=== PATIENT | male | born 1965 | race Caucasian/White ===

== ENCOUNTER → 2017-06-30 | Outpatient (CLI) | payer OTHER ==
--- NOTE | 2017-07-01 23:30 | RAD ---
Procedure: XR CHEST 2 VIEWS Exam Date: 06/30/2017 Ordering Provider: KENNETH Lyle Clinical Indication: COPD Comparison: 02/29/2016 Findings: Cardiomediastinal silhouette is within normal limits. Focal lung consolidation: None Pleural effusion: None Pneumothorax: None Bones and soft tissues: Nonacute Impression: 1. No acute abnormalities in the chest. Electronically signed by: Ashkan Ventura MD 07/01/2017 11:29 PM SAP DATA ARCHITECT
== END | disposition home or self-care (01) ==
LOC: YCFC.O 14:09
PROVIDERS: ATTEND Nurse Practitioner Family
DX: Z00.00 Encounter for general adult medical examination without abnormal findings (principal); J44.9 Chronic obstructive pulmonary disease, unspecified

== ENCOUNTER → 2017-08-21 | Outpatient (CLI) | payer SELFPAY | END | disposition home or self-care (01) | LOC: YCFC.O 13:56 | PROVIDERS: ATTEND Nurse Practitioner Family | DX: E03.9 Hypothyroidism, unspecified (principal) ==

== ENCOUNTER → 2018-10-13 | Outpatient (CLI) | payer OTHER | LOC: YCFC.O 16:16 | PROVIDERS: ATTEND Nurse Practitioner Family | DX: Z00.00 Encounter for general adult medical examination without abnormal findings (principal); E78.2 Mixed hyperlipidemia; E03.9 Hypothyroidism, unspecified ==

== ENCOUNTER 2019-03-22 16:08 | Emergency (ER) | payer SELFPAY ==
--- NOTE | 2019-03-22 17:59 | ED.PDOC ---
History of Present Illness - General Chief Complaint: General Stated Complaint: lower rib cage pain right Time Seen by Provider: 03/22/19 17:56 Source: patient Exam Limitations: no limitations - History of Present Illness Initial Comments: Dimitry Saez 53 y/o male stated that he heard cracking sound right lower rib cage after sneezing and coughing several times yesterday.This am everytime he sneezed hurts the same place.Denies SOB,wheezing.Has history of copd on MDI. Timing/Duration: 24 hours Severity: moderate Improving Factors: rest Worsening Factors: other - cough Associated Symptoms: other - see hpi Allergies/Adverse Reactions: Allergies Penicillins Allergy (Verified 02/29/16 20:35) Home Medications: Ambulatory Orders Albuterol Inhaler [Ventolin Hfa Inhaler] 2 puff INH Q6HR #1 inh 02/29/16 Azithromycin [Zithromax Z-Wesley] 1 ea PO DAILY #1 pack 02/29/16 Acetaminophen W/ Codeine [Tylenol/Codeine #4 300-60 mg] 1 ea PO Q4HR PRN #20 tab 03/22/19 Review of Systems - Review of Systems Respiratory: States: see HPI, other - rib cage pain All other Systems: Reviewed and Negative, No Change from Baseline Past Medical History (General) - Patient Medical History Hx of COPD: Yes Surgical History: no surgical history - Social History Hx Tobacco Use: No Hx Alcohol Use: No Hx Substance Use: No Hx Physical Abuse: No Hx Emotional Abuse: No Hx Suspected Abuse: No Family Medical History - Family History Mother Family History: Unknown Living Status: Unknown Physical Exam - Physical Exam General Appearance: Alert, Comfortable, No apparent distress Eye Exam: bilateral normal Ears, Nose, Throat: hearing grossly normal, normal ENT inspection, normal pharynx Neck: full range of motion, supple, normal inspection Respiratory: lungs clear, normal breath sounds, no respiratory distress, other - tenderness right lower rib cage Cardiovascular/Chest: normal peripheral pulses, regular rate, rhythm, no murmur Peripheral Pulses: radial,right: 2+, radial,left: 2+ Gastrointestinal/Abdominal: non tender, soft Back Exam: no CVA tenderness, no vertebral tenderness Extremity: no pedal edema, no calf tenderness Neurologic: alert, oriented x 3 Skin Exam: normal color, warm/dry Progress - Progress Progress: 08/07/19 19:04 Vital Signs - 8 hr 03/22/19 03/22/19 17:13 18:00 Temperature 98.6 F Pulse Rate [ 101 H 91 H Left Brachial] Respiratory 20 20 Rate Blood Pressure 170/100 160/103 [Left Arm] O2 Sat by Pulse 95 95 Oximetry 03/22/19 19:06 discuss x-ray result with patient - EKG/XRAY/CT XRAY: chest - fracture anterior 9th rib Departure - Departure Clinical Impression: Rib fracture Qualifiers: Encounter type: initial encounter Rib fracture type: single rib Fracture type: closed Laterality: right Qualified Code(s): S22.31XA - Fracture of one rib, right side, initial encounter for closed fracture Time of Disposition: 19:06 Disposition: Discharge to Home or Self Care Departure Forms: ED Discharge - Pt. Copy, Patient Portal Self Enrollment Instructions: Rib Fracture (DC) Referrals: Vane Lyle, [employer] OFF[employer]ER [Primary Care Provider] - 1-2 Weeks Prescriptions: Acetaminophen W/ Codeine [Tylenol/Codeine #4 300-60 mg] 1 ea PO Q4HR PRN #20 tab PRN Reason: Pain Home Medications: Ambulatory Orders Albuterol Inhaler [Ventolin Hfa Inhaler] 2 puff INH Q6HR #1 inh 02/29/16 Azithromycin [Zithromax Z-Wesley] 1 ea PO DAILY #1 pack 02/29/16 Acetaminophen W/ Codeine [Tylenol/Codeine #4 300-60 mg] 1 ea PO Q4HR PRN #20 tab 03/22/19 Additional Instructions: May use ASPERCREME (over the counter) apply to affected area 3 x a day until better;Recheck with primary md 29 March 2019 as needed
--- NOTE | 2019-03-22 18:53 | RAD ---
EXAM: XR Chest, 1 View CLINICAL HISTORY: pain TECHNIQUE: Frontal view of the chest. COMPARISON: 06/30/2017. FINDINGS: Limitations: None. Lungs: Unremarkable. No consolidation. Pleural space: Unremarkable. No pneumothorax. Heart: Unremarkable. No cardiomegaly. Mediastinum: Unremarkable. Bones/joints: There is acute fracture of the anterolateral right ninth rib. Upper abdomen: Stable right diaphragmatic elevation. IMPRESSION: There is acute fracture of the anterolateral right ninth rib. Electronically signed by: Liz Grimes MD 03/22/2019 6:51 PM CDT
--- NOTE | 2019-03-22 19:02 | RAD ---
EXAM DESCRIPTION: Ribs,Right 3 Views CLINICAL HISTORY: 53 years Male pain COMPARISON: None. FINDINGS: The cardiomediastinal silhouette appears unremarkable. Mild elevation of the right hemidiaphragm. No consolidating infiltrates or pleural effusions. No pneumothorax. No acute rib fractures identified. IMPRESSION: No acute abnormality is identified. Electronically signed by: Eduardo Juan MD 03/22/2019 7:00 PM CDT
[2019-03-22] MEDS ORDERED: HYDROCOD/APAP 10/325 (ER DISP) # 3 tablets PO ONE (19:07)
[2019-03-22 19:21] VITALS: BP 160/101; TEMP 98.1; O2SAT 94
== END 2019-03-22 19:15 | disposition home or self-care (01) ==
LOC: ER 16:08
DX: S22.31XA Fracture of one rib, right side, initial encounter for closed fracture (principal); X50.9XXA Other and unspecified overexertion or strenuous movements or postures, initial encounter; Y92.9 Unspecified place or not applicable; J44.9 Chronic obstructive pulmonary disease, unspecified; Z79.899 Other long term (current) drug therapy; Z88.0 Allergy status to penicillin

== ENCOUNTER → 2019-07-28 | Outpatient (CLI) | payer SELFPAY | LOC: LAB.O 15:10 | PROVIDERS: ATTEND Nurse Practitioner | DX: E03.9 Hypothyroidism, unspecified (principal) ==

== ENCOUNTER → 2020-03-30 | Outpatient (CLI) | payer SELFPAY | LOC: YCFC.O 16:40 | PROVIDERS: ATTEND Nurse Practitioner Family | DX: Z00.00 Encounter for general adult medical examination without abnormal findings (principal); E78.5 Hyperlipidemia, unspecified ==

== ENCOUNTER → 2020-05-17 | Outpatient (CLI) | payer SELFPAY | LOC: LAB.O 17:24 | PROVIDERS: ATTEND Nurse Practitioner Family | DX: E03.9 Hypothyroidism, unspecified (principal); E78.00 Pure hypercholesterolemia, unspecified ==